=== PATIENT | female | born 1955 | race Hispanic/Latino ===

== ENCOUNTER 2018-05-01 11:41 | Observation (INO) | payer OTHER ==
[~2018-05-01] VITALS: Ht 165.1 cm; Wt 77.3 kg
[2018-05-01 11:53] LABS: BASOPHILS % (AUTO) 0.5 % (0.0-5.0); EOSINOPHILS % (AUTO) 1.4 % (0.0-8.0); HEMATOCRIT 41.3 % (36-48); LYMPHOCYTES % (AUTO) 36.6 % (21.0-51.0); MEAN CORPUSCULAR HEMOGLOBIN 27.9 pg (27.0-33.0); MEAN CORPUSCULAR HGB CONC 34.4 g/dL (32.0-36.0); MEAN CORPUSCULAR VOLUME 81.1 fL (79-99); MONOCYTES % (AUTO) 4.7 % (3.0-13.0); NEUTROPHILS % (AUTO) 56.8 % (40.0-77.0); NUCLEATED RED BLOOD CELLS 0.1 % (0.0-0.19); PLATELET COUNT (AUTO) 322 K/uL (130-400); RED CELL DISTRIBUTION WIDTH 13.6 % (11.0-15.5); WHITE BLOOD COUNT (AUTO) 9.3 K/uL (4.8-10.8)
[2018-05-01 12:01] LABS: CREATININE 0.9 mg/dL (0.5-1.5); POTASSIUM 3.5 mmol/L (3.5-5.1)
[2018-05-01 12:05] LABS: ALBUMIN 4.4 g/dL (3.5-5.0); BILIRUBIN,TOTAL 0.3 mg/dL (0.2-1.0); TOTAL PROTEIN, SERUM 8.2 g/dL (6.0-8.3)
[2018-05-01] MEDS ORDERED: MAG HYDROX/AL HYDROX/SIMETH ES 30 ML SUSP UDCUP ONE (14:53)
[2018-05-01] MEDS ORDERED: LIDOCAINE HCL 2% VISCOUS 15 ML UDCUP ONE (14:53)
[2018-05-01] MEDS ORDERED: NITROGLYCERIN 1GM/1 INCH PACKET TD ONE (18:39)
[2018-05-01 19:53] VITALS: BP 138/71
[2018-05-01 21:04] LABS: CREATINE KINASE MB 1.4 ng/mL (0.5-3.6); CREATINE KINASE, TOTAL 150 U/L (21-232); MYOGLOBIN 52 ng/mL (10-92); TROPONIN I < 0.04 ng/mL (0.00-0.06)
[2018-05-01] MEDS ORDERED: SODIUM CHLORIDE 0.9% 10 ML VIAL IVP PRN (21:15)
[2018-05-01] MEDS ORDERED: ONDANSETRON HCL 4 MG/2 ML VIAL IVP PRN (21:15)
[2018-05-01] MEDS ORDERED: MORPHINE SULFATE 2 MG/ML 1ML SYG IVP PRN (21:15)
[2018-05-01] MEDS ORDERED: ACETAMINOPHEN 325 MG TAB PO PRN (21:15)
[2018-05-01] MEDS: ENOXAPARIN SODIUM 80 MG/0.8 ML SQ SCH (22:41)
[2018-05-01] MEDS: NITROGLYCERIN 1GM/1 INCH PACKET TD SCH (22:42)
[2018-05-01] MEDS ORDERED: LEVO25TA54 PO (23:28)
[2018-05-01] MEDS ORDERED: ISOS20TA7 PO (23:28)
[2018-05-01] MEDS ORDERED: FENO67CA PO (23:28)
[2018-05-01 23:38] VITALS: BP 129/70
[2018-05-02 03:58] VITALS: BP 126/74
[2018-05-02 04:42] LABS: CREATINE KINASE MB 1.1 ng/mL (0.5-3.6); CREATINE KINASE, TOTAL 132 U/L (21-232); MYOGLOBIN 53 ng/mL (10-92); TROPONIN I < 0.04 ng/mL (0.00-0.06)
[2018-05-02] MEDS: NITROGLYCERIN 1GM/1 INCH PACKET TD SCH ×3 (05:06→20:33)
[2018-05-02 07:00] VITALS: BP 133/76
[2018-05-02] MEDS: ASPIRIN 325 MG TABLET PO SCH (09:33)
[2018-05-02] MEDS: ENOXAPARIN SODIUM 80 MG/0.8 ML SQ SCH ×2 (09:35→20:33)
[2018-05-02 11:00] VITALS: BP 134/75
[2018-05-02 16:00] VITALS: BP 127/62
[2018-05-02] MEDS ORDERED: AMLO2.5T PO (17:58)
[2018-05-02 19:28] VITALS: BP 117/73
[2018-05-02] MEDS ORDERED: PANTOPRAZOLE SODIUM 40 MG TABLET.DR PO ONE (19:30)
[2018-05-02] MEDS ORDERED: CLONAZEPAM 1 MG TABLET PO ONE (21:00)
[2018-05-02 23:38] VITALS: BP 122/66
[2018-05-03 03:36] VITALS: BP 114/72
[2018-05-03] MEDS: NITROGLYCERIN 1GM/1 INCH PACKET TD SCH (05:24)
[2018-05-03 07:00] VITALS: BP 124/70
[2018-05-03] MEDS: ENOXAPARIN SODIUM 80 MG/0.8 ML SQ SCH (08:38)
[2018-05-03] MEDS: ASPIRIN 325 MG TABLET PO SCH (08:38)
[2018-05-03] MEDS ORDERED: PANTOPRAZOLE SODIUM 40 MG TABLET.DR PO SCH (09:00)
[2018-05-03] MEDS ORDERED: AMLODIPINE BESYLATE 2.5 MG TAB PO SCH (09:00)
[2018-05-03] MEDS ORDERED: REGADENOSON 0.4 MG/5 ML PF SYG IVP SCH (11:00)
[2018-05-03 16:26] VITALS: BP 135/77
== END 2018-05-03 17:20 | disposition home or self-care (01) ==
LOC: EDH 11:41 → EDHIP 15:16 → 2DH 19:49
PROVIDERS: ADMIT Family Medicine; ATTEND Family Medicine
DX: R07.9 Chest pain, unspecified (principal); I10 Essential (primary) hypertension; E03.9 Hypothyroidism, unspecified; E78.5 Hyperlipidemia, unspecified; Z90.49 Acquired absence of other specified parts of digestive tract; Z90.710 Acquired absence of both cervix and uterus; Z79.899 Other long term (current) drug therapy
CPT/HCPCS: 36415 ×2; 71045; 78452; 80053; 82550 ×2; 82553 ×2; 83874 ×2; 84484 ×3; 85025; 93005 ×4; 93017; 93306; 96372 ×3; 99285; A9500 ×2; G0378 ×50; J1650 ×4; J2785; 96374

== ENCOUNTER 2019-10-02 07:49 | Day surgery (SDC) | payer OTHER ==
[2019-09-26 11:36] LABS: BASOPHILS % (AUTO) 0.7 % (0.0-5.0); EOSINOPHILS % (AUTO) 1.9 % (0.0-8.0); HEMATOCRIT 40.9 % (36-48); LYMPHOCYTES % (AUTO) 37.1 % (21.0-51.0); MEAN CORPUSCULAR HEMOGLOBIN 27.9 pg (27.0-33.0); MEAN CORPUSCULAR HGB CONC 33.8 g/dL (32.0-36.0); MEAN CORPUSCULAR VOLUME 82.6 fL (79-99); NEUTROPHILS % (AUTO) 55.3 % (40.0-77.0); PLATELET COUNT (AUTO) 285 K/uL (130-400); RED BLOOD CELL COUNT(AUTO) 4.95 MIL/uL (4.00-5.50); RED CELL DISTRIBUTION WIDTH 13.6 % (11.0-15.5); WHITE BLOOD COUNT (AUTO) 8.7 K/uL (4.8-10.8)
[2019-09-26 11:46] LABS: CREATININE 0.8 mg/dL (0.5-1.5); POTASSIUM 3.8 mmol/L (3.5-5.1)
[2019-09-26 12:06] VITALS: BP 140/71
[2019-10-02] VITALS (15 sets, daily range): BP systolic 108–133; BP diastolic 49–76
[~2019-10-02] VITALS: Ht 162.6 cm; Wt 77.2 kg
[2019-10-02] MEDS: CEFAZOLIN SODIUM 1 GM VIAL IVP SCH ×2 (06:00→09:29)
[~2019-10-02 07:49] MED LIST: ASCO500T9 PO; ASPI-555 PO; ATOR20TA65 PO; CALC600T12 PO; ICOS1CAP PO; ISOS20TA7 PO; LEVO50TA11 PO; MULT-1296 PO; RANI150T7 PO
[2019-10-02] MEDS ORDERED: LACTATED RINGERS 1000ML 1,000 ML IV ONE (08:59)
[2019-10-02] MEDS ORDERED: ROPIVACAINE 0.5% 5MG/ML 30ML IJ ONE (09:23)
[2019-10-02] MEDS ORDERED: PROPOFOL 10 MG/ML 20ML VIAL IV ONE (09:24)
[2019-10-02] MEDS ORDERED: DEXAMETHASONE SOD PHOSPHATE 10MG/ML 1ML VIAL ONE (09:24)
[2019-10-02] MEDS ORDERED: ONDANSETRON HCL 4 MG/2 ML VIAL ONE ×2 (09:24→11:28)
[2019-10-02] MEDS ORDERED: MIDAZOLAM HCL 1 MG/ML 2ML VIAL ONE (09:24)
[2019-10-02] MEDS ORDERED: LIDOCAINE PF 2% 5ML ABBOJECT ONE (09:24)
[2019-10-02] MEDS ORDERED: FENTANYL CITRATE PF 50 MCG/1 ML 2ML VIAL ONE (09:25)
[2019-10-02] MEDS ORDERED: ROCURONIUM 10MG/1ML SYR 10 MG/ML ML ONE (09:26)
[2019-10-02] MEDS ORDERED: BUPIVACAINE/PF 0.25% 30ML VIAL IJ ONE (09:39)
[2019-10-02] MEDS ORDERED: EPHEDRINE SULFATE 50 MG/ML AMPULE ONE (09:45)
[2019-10-02] MEDS ORDERED: GLYCOPYRROLATE 1 MG/5 ML SYRINGE ONE (09:49)
[2019-10-02] MEDS ORDERED: NEOSTIGMINE 5MG/5ML SYR IV ONE (10:42)
[2019-10-02] MEDS ORDERED: METOCLOPRAMIDE 10 MG/2 ML VIAL ONE (11:39)
--- NOTE | 2019-10-02 13:40 | NUR ---
PT LEFT VIA WHEELCHAIR IN PVT CAR WITH D/C AND F/U INSTRUCTIONS GIVEN TO DAUGHTER. NO COMPLICATIONS UPON D/C DRESSING DRY AND INTACT.
== END 2019-10-02 13:40 ==
LOC: DAH 07:49
PROVIDERS: ATTEND Orthopaedic Surgery
DX: M75.122 Complete rotator cuff tear or rupture of left shoulder, not specified as traumatic (principal); M75.52 Bursitis of left shoulder; M67.814 Other specified disorders of tendon, left shoulder; E78.00 Pure hypercholesterolemia, unspecified; I10 Essential (primary) hypertension; E66.9 Obesity, unspecified; Z90.710 Acquired absence of both cervix and uterus; Z90.49 Acquired absence of other specified parts of digestive tract; Z98.890 Other specified postprocedural states
CPT/HCPCS: 23412; 23430; 36415; 64415; 73030; 80048; 85025; A4215; A4221; A4222; A4223; A4248; A4450; A4452; A4565; A4649 ×4; A4663; A4930; A5120; A6204; A6207; C1713; G0168; J1100; J2001; J2250; J2405 ×2; J2704; J2710; J2765; J2795; J3010; J3490 ×3; J7120 ×2

== ENCOUNTER 2019-10-06 23:16 | Emergency (ER) | payer OTHER ==
[2019-10-07 00:53] LABS: BASOPHILS % (AUTO) 0.3 % (0.0-5.0); HEMATOCRIT 40.2 % (36-48); LYMPHOCYTES % (AUTO) 37.5 % (21.0-51.0); MEAN CORPUSCULAR HEMOGLOBIN 28.3 pg (27.0-33.0); MEAN CORPUSCULAR HGB CONC 33.8 g/dL (32.0-36.0); MEAN CORPUSCULAR VOLUME 83.7 fL (79-99); MONOCYTES % (AUTO) 5.5 % (3.0-13.0); NEUTROPHILS % (AUTO) 52.7 % (40.0-77.0); NUCLEATED RED BLOOD CELLS 0.1 % (0.0-0.19); PLATELET COUNT (AUTO) 285 K/uL (130-400); RED CELL DISTRIBUTION WIDTH 13.2 % (11.0-15.5); WHITE BLOOD COUNT (AUTO) 8.9 K/uL (4.8-10.8)
[2019-10-07 01:07] LABS: CREATININE 0.7 mg/dL (0.5-1.5); POTASSIUM 3.8 mmol/L (3.5-5.1)
[2019-10-07] MEDS ORDERED: CEPHALEXIN 500 MG CAPSULE ONE (01:20)
== END 2019-10-07 01:59 | disposition home or self-care (01) ==
LOC: EDH 23:16
DX: L03.114 Cellulitis of left upper limb (principal); I10 Essential (primary) hypertension; E07.9 Disorder of thyroid, unspecified; Z90.49 Acquired absence of other specified parts of digestive tract; Z90.710 Acquired absence of both cervix and uterus
CPT/HCPCS: 36415; 80048; 85025; 87070